=== PATIENT | male | born 1995 | race Caucasian/White ===

== ENCOUNTER → 2019-03-08 11:03 | Outpatient (CLI) | payer BC, MEDICAID, SELFPAY ==
[2019-03-08 11:05] LABS: Adenovirus F 40/41, stool Not Detected (NotDetected); Astrovirus Not Detected (NotDetected); Campylobacter Not Detected (NotDetected); Clostridium Difficile A/B, PCR Not Detected (NotDetected); Cryptosporidium Not Detected (NotDetected); Cyclospora Cayetanesis Not Detected (NotDetected); Entamoeba histolytica Not Detected (NotDetected); Enteroaggregative E coli Not Detected (NotDetected); Enteropathogenic E coli Not Detected (NotDetected); Enterotoxigenic E coli Not Detected (NotDetected); Giardia lamblia Not Detected (NotDetected); Norovirus Not Detected (NotDetected); Plesimonas Shigalloides, PCR Not Detected (NotDetected); Rotavirus A Not Detected (NotDetected); Salmonella, PCR Not Detected (NotDetected); Sapovirus Not Detected (NotDetected); Shiga-like toxin E coli Not Detected (NotDetected); Shigella Enterovasive E coli Not Detected (NotDetected); Vibrio Cholerae Not Detected (NotDetected); Vibrio, PCR Not Detected (NotDetected); Yersinia Entercolitica, PCR Not Detected (NotDetected)
== END ==
PROVIDERS: Visit Provider Internal Medicine
DX: K52.9 Noninfective gastroenteritis and colitis, unspecified (principal)
CPT/HCPCS: 87205; 87507

== ENCOUNTER → 2021-06-09 17:44 | Outpatient (CLI) | payer BC, OTHER, SELFPAY ==
[2021-06-09 19:04] LABS: Basophils % 0.5 % (0.1-2.0); Eosinophils # 0.1 K/mm3 (0.0-0.4); Hematocrit 44.7 % (42.0-52.0); Hemoglobin 15.5 g/dL (14.1-18.0); Lymphocytes # 2.1 K/mm3 (0.7-4.5); Lymphocytes % 37.2 % (10-50); Mean Corpuscular HGB Conc 34.7 g/dL (31.8-35.4); Mean Corpuscular Hemoglobin 31.2 pg (27.0-31.2); Mean Corpuscular Volume 89.8 fl (80-94); Mean Platelet Volume 9.5 fl (7.4-10.4); Monocytes # 0.4 K/mm3 (0.1-1.0); Monocytes % 6.2 % (1.7-9.3); Neutrophils # 3.1 K/mm3 (1.8-7.8); Neutrophils % 54.1 % (37.0-80.0); Platelet Count 215 K/mm3 (142-424); Red Blood Count 4.99 M/mm3 (4.60-6.20); Red Cell Distribution Width 12.4 % (11.5-17.5); White Blood Count 5.6 K/mm3 (4.8-10.8)
[2021-06-09 19:13] LABS: Alanine Aminotransferase 24 U/L (12-78); Albumin Level 4.5 g/dl (3.5-5.0); Albumin/Globulin Ratio 1.8 (1.1-1.8); Alkaline Phosphatase 39 U/L (38-126); Anion Gap 12.1 mEq/L (5-15); Aspartate Amino Transferase 26 U/L (17-59); Bilirubin,Total 0.4 mg/dl (0.2-1.3); Blood Urea Nitrogen 12 mg/dl (9-20); Calcium 9.4 mg/dl (8.4-10.2); Carbon Dioxide 30 mmol/L (22.0-30.0); Chloride 98 mmol/L (98-107); Chol/HDL Ratio 3.1 (1-3.5); Cholesterol 188 mg/dl (140-200); Estimated Glomerular Filt Rate 101 ml/min (>60); GFR (African American) 122 ML/MIN (>60); Globulin 2.5 g/dL (1.3-3.2); Glucose 95 mg/dl (74-100); HDL Cholesterol 60 mg/dl (40-60); Potassium 4.1 mmoL/L (3.5-5.1); Sodium 136 mmol/L (136-145); Triglycerides 227 mg/dl (30-150); VLDL Cholesterol 45 mg/dL (0-40)
[2021-06-09 19:24] LABS: Direct LDL Cholesterol 100.35 mg/dL (100-129)
[2021-06-09 20:25] LABS: Hemoglobin A1C 5.3 % (4.0-6.0)
== END ==
PROVIDERS: Visit Provider Internal Medicine
DX: I10 Essential (primary) hypertension (principal); E78.5 Hyperlipidemia, unspecified; M10.9 Gout, unspecified; R79.89 Other specified abnormal findings of blood chemistry; Z13.1 Encounter for screening for diabetes mellitus
CPT/HCPCS: 80053; 80061; 83036; 84443; 84550; 85025

== ENCOUNTER → 2021-09-21 13:22 | Outpatient (CLI) | payer BC, OTHER, SELFPAY ==
[2021-09-21 14:36] LABS: Chloride 105 mmol/L (98-107); Sodium 138 mmol/L (136-145)
[2021-09-21 14:37] LABS: Potassium 4.4 mmoL/L (3.5-5.1)
[2021-09-21 14:40] LABS: Anion Gap 13.4 mEq/L (5-15); Blood Urea Nitrogen 18 mg/dl (9-20); Calcium 8.5 mg/dl (8.4-10.2); Carbon Dioxide 24 mmol/L (22.0-30.0); Estimated Glomerular Filt Rate 100 ml/min (>60); GFR (African American) 122 ML/MIN (>60); Glucose 98 mg/dl (74-100)
== END ==
PROVIDERS: Visit Provider Internal Medicine
DX: M10.9 Gout, unspecified (principal); E03.9 Hypothyroidism, unspecified; I10 Essential (primary) hypertension; R94.6 Abnormal results of thyroid function studies
CPT/HCPCS: 80048; 84443

== ENCOUNTER 2022-02-08 09:29 | Emergency (ER) | payer OTHER, SELFPAY ==
[2022-02-08] VITALS (10 sets, daily range): BP systolic 134–162; BP diastolic 78–105; PULSE 66–99; RESP 16–18; TEMP 36.6–37.2; O2SAT 94–100; BMI 37.9
--- NOTE | 2022-02-08 10:32 | HMH.EDANX ---
ED Disposition Clinical Impression: Auditory hallucinations, Visual hallucination Psychosis Qualifiers: Psychosis type: unspecified psychosis type Qualified Code(s): F29 - Unspecified psychosis not due to a substance or known physiological condition Disposition: Xfer Psychiatric Hosp Condition on Discharge: Fair Referrals: Juan Torres MD [Primary Care Provider] - Forms: Work/School Release, Transfer Record - ED - Critical Care Critical Care Time: No Attestation: On 02/08/22, the high probability of a clinically significant, sudden or life threatening deterioration of the following system(s) required my full and direct attention, intervention and personal management. The time I documented below is in addition to time spent performing reported procedures but includes the following listed in this critical care notation. Medical Decision Making - Medical Records Medical records reviewed: Yes: I reviewed the patient's medical records. - Damon Inquiry Pt receiving controlled substance: No Vital Signs: 02/08/22 09:30 02/08/22 10:00 02/08/22 11:00 Temperature 99.0 F Temperature Source Oral Pulse Rate 87 85 Pulse Rate [Right Radial] 98 H Respiratory Rate 18 Blood Pressure 162/89 H Blood Pressure [Right Arm] 149/94 H Blood Pressure Mean 113 Blood Pressure Mean [Right Arm] 112 Blood Pressure Source Blood Pressure Source [Right Arm] Automatic Cuff Blood Pressure Position Blood Pressure Position [Right Arm] Sitting 02 Sat by Pulse Oximetry 98 100 98 Oxygen Delivery Method Room Air Room Air 02/08/22 12:02 02/08/22 12:44 02/08/22 13:01 Temperature Temperature Source Pulse Rate 73 83 73 Pulse Rate [Right Radial] Respiratory Rate 16 Blood Pressure 162/105 H 146/92 H 134/84 Blood Pressure [Right Arm] Blood Pressure Mean 124 110 100 Blood Pressure Mean [Right Arm] Blood Pressure Source Blood Pressure Source [Right Arm] Blood Pressure Position Blood Pressure Position [Right Arm] 02 Sat by Pulse Oximetry 100 100 100 Oxygen Delivery Method Room Air 02/08/22 15:42 02/08/22 16:01 02/08/22 19:00 Temperature Temperature Source Pulse Rate 66 93 H 99 H Pulse Rate [Right Radial] Respiratory Rate 16 18 18 Blood Pressure 162/78 H 144/86 H 151/85 H Blood Pressure [Right Arm] Blood Pressure Mean 93 102 107 Blood Pressure Mean [Right Arm] Blood Pressure Source Blood Pressure Source [Right Arm] Blood Pressure Position Blood Pressure Position [Right Arm] 02 Sat by Pulse Oximetry 94 L 98 98 Oxygen Delivery Method Room Air Room Air Room Air 02/08/22 20:06 Temperature 98 F Temperature Source Oral Pulse Rate 90 Pulse Rate [Right Radial] Respiratory Rate 18 Blood Pressure 151/85 H Blood Pressure [Right Arm] Blood Pressure Mean Blood Pressure Mean [Right Arm] Blood Pressure Source Automatic Cuff Blood Pressure Source [Right Arm] Blood Pressure Position Sitting Blood Pressure Position [Right Arm] 02 Sat by Pulse Oximetry Oxygen Delivery Method Room Air - Lab Data Lab Results 02/08/22 11:00: Urine Color Yellow, Urine Appearance Clear, Urine pH 6.5, Ur Specific Ada <= 1.005, Urine Protein Negative, Urine Glucose (UA) Negative, Urine Ketones Negative, Urine Blood Negative, Urine Nitrate Negative, Urine Bilirubin Negative, Urine Urobilinogen 0.2, Ur Leukocyte Esterase Negative, Urine RBC None, Urine WBC None, Ur Squamous Epith Cells None, Urine Bacteria Trace 02/08/22 11:00: WBC 7.3, RBC 4.71, Hgb 14.5, Hct 44.5, MCV 94.3 H, MCH 30.8, MCHC 32.7, RDW 12.8, Plt Count 236, MPV 9.0, Neut % (Auto) 67.7, Lymph % (Auto) 25.8, [place] % (Auto) 5.9, Eos % (Auto) 0.0 L, Baso % (Auto) 0.6, Neut # (Auto) 5.0, Lymph # (Auto) 1.9, [place] # (Auto) 0.4, Eos # (Auto) 0.0, Baso # (Auto) 0.0 02/08/22 11:00: Sodium 139, Potassium 3.8, Chloride 104, Carbon Dioxide 25, Anion Gap 13.8, BUN 7 L, Creatinine 0.80, Estimated Creat Clear 282, Estimat
--- NOTE | 2022-02-08 10:36 | PC.NURSE ---
ER MD at for patient eval; Mother at BS
--- NOTE | 2022-02-08 11:14 | PC.NURSE ---
notified ER MD pt is having more hallucinations, thinking the bed is spinning and he feels like he is going to fall off. pt is oriented to person/place but is seeing people who are not present. Pt mother at , juan daniel bed rails up on bed.
[2022-02-08 11:18] LABS: Microscopic, Urine URINE MICROSCOPIC (MICROSCOPIC)
[2022-02-08 11:22] LABS: Basophils % 0.6 % (0.1-2.0); Hematocrit 44.5 % (42.0-52.0); Hemoglobin 14.5 g/dL (14.1-18.0); Lymphocytes # 1.9 K/mm3 (0.7-4.5); Lymphocytes % 25.8 % (10-50); Mean Corpuscular HGB Conc 32.7 g/dL (31.8-35.4); Mean Corpuscular Hemoglobin 30.8 pg (27.0-31.2); Mean Corpuscular Volume 94.3 fl (80-94); Monocytes # 0.4 K/mm3 (0.1-1.0); Monocytes % 5.9 % (1.7-9.3); Neutrophils % 67.7 % (37.0-80.0); Platelet Count 236 K/mm3 (142-424); Red Blood Count 4.71 M/mm3 (4.60-6.20); Red Cell Distribution Width 12.8 % (11.5-17.5); White Blood Count 7.3 K/mm3 (4.8-10.8)
[2022-02-08 11:26] LABS: Appearance,Urine CLEAR (Clear); Bilirubin,Urine Negative (Negative); Blood, Urine Negative (Negative); Color,Urine YELLOW (Yellow); Glucose,Urine (UA) Negative (Negative); Ketones,Urine Negative (Negative); Leukocyte Esterase,Urine Negative (Negative); Nitrate,Urine Negative (Negative); PH,Urine 6.5 (5.0-8.5); Protein,Urine Negative (Negative); Specific Gravity, Urine <= 1.005 (1.005-1.030); Urobilinogen,Urine 0.2 EU/dl (0.2)
[2022-02-08 11:27] LABS: Alanine Aminotransferase 36 U/L (12-78); Albumin Level 4.7 g/dl (3.5-5.0); Albumin/Globulin Ratio 1.6 (1.1-1.8); Alkaline Phosphatase 49 U/L (38-126); Anion Gap 13.8 mEq/L (5-15); Aspartate Amino Transferase 33 U/L (17-59); Bilirubin,Total 0.6 mg/dl (0.2-1.3); Blood Urea Nitrogen 7 mg/dl (9-20); Calcium 9.2 mg/dl (8.4-10.2); Carbon Dioxide 25 mmol/L (22.0-30.0); Chloride 104 mmol/L (98-107); Creatinine Clearance Estimated 282 mL/min (50-200); Estimated Glomerular Filt Rate 115 ml/min (>60); GFR (African American) 139 ML/MIN (>60); Globulin 2.9 g/dL (1.3-3.2); Glucose 101 mg/dl (74-100); Potassium 3.8 mmoL/L (3.5-5.1); Sodium 139 mmol/L (136-145); Total Protein,Serum 7.6 g/dl (6.3-8.2)
[2022-02-08 11:29] LABS: Ethyl Alcohol < 10 mg/dl (0-10)
[2022-02-08 11:38] LABS: Bacteria,Urine Trace /lpf
[2022-02-08 11:43] LABS: Barbiturates Screen,Urine Negative ng/ml (<200); Cannabinoid Screen,Urine Negative ng/ml (<50); Cocaine Screen,Urine Negative ng/ml (<300); Methadone Screen,Urine Negative ng/ml (<300); Opiate Screen,Urine Negative ng/ml (<300); Phencyclidine Screen,Urine Negative ng/ml (<25)
[2022-02-08 11:47] LABS: Amphetamine/Metha Screen,Urine Negative ng/ml (<1000)
[2022-02-08 11:49] LABS: Benzodiazepines Screen,Urine Negative ng/ml (<200)
--- NOTE | 2022-02-08 12:20 | PC.NURSE ---
pt ambulated to restroom independently at this time.
--- NOTE | 2022-02-08 13:12 | PC.NURSE ---
contacted care management to assist with possible psych consult or transfer
--- NOTE | 2022-02-08 13:27 | PC.NURSE ---
spoke with alli at this time, states she is going to contact [facility] for placement. Pt is agreeable to go to [facility] at this time.
--- NOTE | 2022-02-08 13:28 | SW/DCPLANNER ---
Addendum entered by Trini Metzger 02/08/22 16:01: Patient is currently on the phone with Intake at [facility]. Addendum entered by Trini Metzger 02/08/22 14:05: Cruz Sheffield is currently reviewing patient information. Original Note: Patient information has been faxed to Intake (Isaura) at [facility] at this time. I will follow up with patient once Isaura reviews patient information.
--- NOTE | 2022-02-08 14:00 | PC.NURSE ---
pt given lunch tray
--- NOTE | 2022-02-08 14:40 | PC.NURSE ---
per alli in care management pt information has been sent to [facility] they are still reviewing it, waiting to hear back from them
--- NOTE | 2022-02-08 15:31 | PC.NURSE ---
per alli in care management states she just got off the phone with [facility], states they are currently reviewing pt chart and are supposed to call her back soon.
--- NOTE | 2022-02-08 15:40 | PC.NURSE ---
updated pt on POC, pt resting in bed on his phone, parents at BS will continue to monitor
--- NOTE | 2022-02-08 15:48 | PC.NURSE ---
Rounded on pt. B/P cuff reapplied and warm blankets provided
--- NOTE | 2022-02-08 15:55 | PC.NURSE ---
pt speaking with magalie at [facility] doing an assessment screening on pt. alli ron from care management at
--- NOTE | 2022-02-08 16:20 | PC.NURSE ---
pt hung up on magalie at [facility] during assessment, pt mother reports pt began hallucinating while on the phone at hung up. Called back to [facility] magalie states she giving pt information to their doctor and will contact us back
--- NOTE | 2022-02-08 17:17 | PC.NURSE ---
171- spoke with magalie at [facility] at this times states pt accepted per dr. murrieta 1715-report given to rachele alcala at [facility] at this time, requesting an ekg and covid swab and requests we fax results prior to sending there for transfer fax number [phone]
--- NOTE | 2022-02-08 17:27 | ECG_ITS ---
APPROVED REPORT Exam: Resting ECG HR:90 bpm ECG Measurements Heart Rate 90 AXES HI 144 P 46 QRSd 88 QRS 62 QT 337 T -7 QTc 384 Conclusion SINUS RHYTHM NONSPECIFIC T-WAVE ABNORMALITY ABNORMAL ECG UNCONFIRMED REPORT Electronically signed by : Juan Torres MD 02/09/2022 21:24:52
--- NOTE | 2022-02-08 17:51 | PC.NURSE ---
Dietary brought patient a regular diet tray to BS.
--- NOTE | 2022-02-08 18:00 | PC.NURSE ---
lab states placing pt covid swab on next
[2022-02-08 18:01] LABS: Coronavirus 19, PCR Not Detected (NotDetected); Influenza A, PCR Not Detected (NotDetected); Influenza B, PCR Not Detected (NotDetected)
--- NOTE | 2022-02-08 18:26 | PC.NURSE ---
pt given another blanket and pillow. lights are out, and patient is resting with father at BS.
--- NOTE | 2022-02-08 18:37 | PC.NURSE ---
faxed paperwork, ekg and covid results to [facility]
--- NOTE | 2022-02-08 18:52 | PC.NURSE ---
spoke with intake center at [facility], states they have received ekg and covid swab on pt. States okay to send pt on over. contacted dispatch to speak with [facility], waiting solution coordinator back
--- NOTE | 2022-02-08 19:22 | PC.NURSE ---
per [facility] officer states they are unable to transport pt at this time r/t unavailable amount of staff states she is going to contact [facility] office at 8pm, have update pt mother at this time
--- NOTE | 2022-02-08 19:40 | PC.NURSE ---
report given to rachele pleitez
--- NOTE | 2022-02-08 20:24 | PC.NURSE ---
dispatch notified that we have the need for transport to [facility]
== END 2022-02-08 20:57 ==
PROVIDERS: Emergency Provider Emergency Medicine; PCP Internal Medicine Adolescent Medicine
DX: F29 Unspecified psychosis not due to a substance or known physiological condition (principal); Z20.822 Contact with and (suspected) exposure to COVID-19
CPT/HCPCS: 80053; 80305; 81001; 85025; 93005; 96372; 99283; C9803; U0003; U0005

== ENCOUNTER → 2022-03-05 11:12 | Outpatient (CLI) | payer OTHER, SELFPAY ==
[2022-03-05 11:39] LABS: Barbiturates Screen,Urine Negative ng/ml (<200)
[2022-03-05 11:40] LABS: Amphetamine/Metha Screen,Urine Negative ng/ml (<1000); Benzodiazepines Screen,Urine Negative ng/ml (<200)
[2022-03-05 11:41] LABS: Methadone Screen,Urine Negative ng/ml (<300)
[2022-03-05 11:42] LABS: Cannabinoid Screen,Urine Negative ng/ml (<50); Cocaine Screen,Urine Negative ng/ml (<300)
[2022-03-05 11:44] LABS: Opiate Screen,Urine Negative ng/ml (<300); Phencyclidine Screen,Urine Negative ng/ml (<25)
== END ==
PROVIDERS: PCP Internal Medicine Adolescent Medicine; Visit Provider Internal Medicine Adolescent Medicine
DX: Z00.00 Encounter for general adult medical examination without abnormal findings (principal)
CPT/HCPCS: 80305

== ENCOUNTER 2022-06-23 16:52 | Emergency (ER) | payer OTHER, SELFPAY ==
[2022-06-23 17:35] VITALS: BP 149/81; PULSE 89; RESP 19; TEMP 37.2; O2SAT 99; BMI 37.9
--- NOTE | 2022-06-23 17:44 | EXP.UTC ---
Discharge Plan Disposition Patient Disposition: Home, Self-Care Condition: Good Prescriptions Prescriptions: New benzonatate [benzonatate] 100 mg capsule 100 mg PO TIDP PRN (Reason: Cough) Qty: 30 0RF amoxicillin-pot clavulanate 875-125 mg Tablet 1 tab PO Q12H Qty: 20 0RF prednisone [prednisone] 20 mg tablet 20 mg PO BID 3 Days Qty: 6 0RF No Action Vivitrol 380 mg suspension,extended rel recon 380 mg IM MONTHLY Qty: 1 0RF amitriptyline 50 MG tablet 50 mg PO HS propranolol 40 MG tablet 20 mg PO BID levothyroxine 150 MCG tablet 150 mcg PO DAILY quetiapine 50 MG tablet extended release 24 hr 50 mg PO BID Referrals Follow up/Referrals: Juan Torres MD [Primary Care Provider] - See instructions Activity Restrictions/Add. Instructions Additional Instructions/Restrictions: Drink plenty of fluids. Take tylenol or ibuprofen for pain or fever. Take the medications as directed. Follow up with your regular doctor. GO TO THE ER FOR ANY WORSENING SYMPTOMS Throw your tooth brush away and get a new one. Clinical Impressions Clinical Impression: Strep throat Instructions Patient Instructions: Strep Throat, DI for Strep Throat Discharge ED Provider: Christopher Meraz [facility] HPI General Stated complaint: sore throat Time Seen by Provider: 06/23/22 17:44 History of Present Illness Provider Complaint: He states that for the past 2 days he has had a very sore throat and sinus drainage. He has been exposed to strep throat at his work. Related Data Home Medications Medication Instructions Recorded Confirmed amitriptyline 50 mg tablet 50 mg PO HS sleep 02/08/22 04/29/22 levothyroxine 150 mcg tablet 150 mcg PO DAILY thyroid 02/08/22 04/29/22 propranolol 40 mg tablet 20 mg PO BID mood 02/08/22 04/29/22 quetiapine 50 mg tablet,extended 50 mg PO BID Anxiety 02/08/22 04/29/22 release 24 hr Previous Rx's Medication Instructions Recorded amoxicillin 875 mg-potassium 1 tab PO Q12H #20 tabs 06/23/22 clavulanate 125 mg tablet benzonatate 100 mg capsule 100 mg PO TIDP PRN Cough #30 caps 06/23/22 prednisone 20 mg tablet 20 mg PO BID 3 days #6 tabs 06/23/22 Allergies Allergy/AdvReac Type Severity Reaction Status Date / Time methocarbamol AdvReac Mild ANXIETY/WAN Verified 06/23/22 17:58 [facility] Disclaimer: The information contained in this section may have been updated after the patient was seen, as this information can be updated by other users. Medical History Opiate misuse Social History Smoking Status: Never smoker alcohol intake: former counseling given: No substance use type: former substance user, heroin and painkillers counseling given: No current occupational status: employed Travel in the last 8 weeks: None adopted: No caregiver/support person: No foster care: No household members: family housing: house marital status: single number of children: 0 education level: high school service: No ROS Obtained: Yes All systems reviewed & no additional complaints except as documented Constitutional Constitutional: Reports chills and Reports fever(s) Eyes Eyes: Denies eye discharge ENT Ears, Nose, Mouth, and Throat: Reports as per HPI Cardiovascular Cardiovascular: Denies chest pain Respiratory Respiratory: Denies chest congestion and Reports cough Gastrointestinal Gastrointestingal: Reports nausea; Denies abdominal pain, constipation, cramping, diarrhea or vomiting Musculoskeletal Musculoskeletal: Denies arthralgias Integumentary/Breasts Skin/Breast: Denies rash Neurologic Neurologic: Denies paresthesias Physical Exam General General appearance: alert and in no apparent distress Head Head exam: atraumatic, normocephalic and normal inspection Eye Eye exam: Present normal a
[2022-06-23 17:54] LABS: UTC Strep Screen (Rapid) Positive (Negative)
[2022-06-23 18:00] VITALS: BP 149/81; PULSE 89; RESP 19; TEMP 36.8; O2SAT 99
== END 2022-06-23 18:00 | disposition home or self-care (01) ==
PROVIDERS: Emergency Provider Nurse Practitioner Family; PCP Internal Medicine Adolescent Medicine
DX: J02.0 Streptococcal pharyngitis (principal)
CPT/HCPCS: 87880; 99212; 99213; G0463

== ENCOUNTER 2022-09-22 15:08 | Emergency (ER) | payer OTHER, SELFPAY ==
--- NOTE | 2022-09-22 15:20 | XR_ITS ---
FINAL REPORT CLINICAL HISTORY: fell FINDINGS: RIGHT SHOULDER Two views of the right shoulder were obtained. There is no acute fracture or dislocation. The joint spaces are intact. There is no soft tissue abnormality. IMPRESSION: No acute bony abnormality. Reviewed, Interpreted and Dictated by Manjeet Mota MD Transcribed by Nora Calderon Authenticated and [facility]
--- NOTE | 2022-09-22 15:20 | XR_ITS ---
FINAL REPORT CLINICAL HISTORY: fell FINDINGS: RIGHT HUMERUS Two views of the right humerus were obtained. There is no acute fracture or dislocation. The visualized joint spaces are intact. There is no soft tissue abnormality. IMPRESSION: No acute bony abnormality. Reviewed, Interpreted and Dictated by Manjeet Mota MD Transcribed by Nora Calderon Authenticated and [facility]
--- NOTE | 2022-09-22 15:20 | XR_ITS ---
FINAL REPORT CLINICAL HISTORY: fell FINDINGS: RIGHT CLAVICLE Two views of the right clavicle were obtained. There is no acute fracture or dislocation. The joint spaces are intact. There is no soft tissue abnormality. IMPRESSION: No acute bony abnormality. Reviewed, Interpreted and Dictated by Manjeet Mota MD Transcribed by Nora Calderon Authenticated and [facility]
--- NOTE | 2022-09-22 15:21 | XR_ITS ---
FINAL REPORT CLINICAL HISTORY: fell FINDINGS: RIGHT ELBOW Three views of the right elbow were obtained. There is no acute fracture or dislocation. The joint spaces are intact. There is no soft tissue abnormality. IMPRESSION: No acute bony abnormality. Reviewed, Interpreted and Dictated by Manjeet Mota MD Transcribed by Nora Calderon Authenticated and [facility]
[2022-09-22 15:45] VITALS: BP 164/95; PULSE 118; RESP 20; TEMP 36.9; O2SAT 99; BMI 35.5
--- NOTE | 2022-09-22 16:02 | EXP.UTC ---
Discharge Plan Disposition Patient Disposition: Home, Self-Care Condition: Good Prescriptions Prescriptions: No Action Vivitrol 380 mg suspension,extended rel recon 380 mg IM MONTHLY Qty: 1 0RF propranolol 40 MG tablet 20 mg PO BID levothyroxine 150 MCG tablet 150 mcg PO DAILY quetiapine 50 MG tablet extended release 24 hr 50 mg PO BID Referrals Follow up/Referrals: Gold King JR, MD [Physician] - See instructions (Call office for appointment ) Juan Torres MD [Primary Care Provider] - See instructions Activity Restrictions/Add. Instructions Additional Instructions/Restrictions: *RICE, Rest the extremity, Ice 15-20 minutes 3-4 times daily, Compress- wear the adriane wrap as discussed as much as possible to help reduce swelling and pain, Elevate the extremity when at rest *Sling is for support and help control swelling, use it except in the shower. Be sure that is not to tight but not to loose either *Elevate when resting? *Ibuprofen 600-800mg every 6-8 hours as needed for pain an inflammation if you can take it. If not or your need something more can take Tylenol in between doses of Ibuprofen to help Immediately follow up with your family doctor for new or worsening of symptoms, or no noticeable improvement over the next 3-5 days Follow up with Orthopedics or you Family Doctor for further evaluation and testing Clinical Impressions Clinical Impression: Arm pain, right Stand Alone Forms Stand Alone Forms: Work/School Release Instructions Patient Instructions: How to Use a Sling, How To Perform RICE (Rest, Ice, Compress, Elevate) Discharge ED Provider: Taina Garcia [facility] General Stated complaint: AO 09/18@home injured R shoulder Mode of Arrival: Ambulatory Source of Information: Patient Limitations: No Limitations Time Seen by Provider: 09/22/22 16:03 Description of Symptoms (Recalled from Triage Doc. by RN): sat fell in shower hit elbow. Pain in elbow, bicep, and shoulder HEENT Symptoms (Recalled from RN notes): No Resp Symptoms (Recalled from RN notes): No Skin Symptoms (Recalled from RN notes): No MS Symptoms (Recalled from RN notes): Yes Functional Status (Recalled from RN notes): n/a History of Present Illness Provider Complaint: Patient states that on September 18 he was in the shower and lost his balance and fell States that he landed caught himself with his elbow on the floor States that since then he has been having pain in his right elbow, upper arm, shoulder and clavicle area States that today he was having pain when he would try to raise up his arm States that when he tries to raise up his arm it shoots pain through his shoulder and down his arm so he came in to get it checked worried his shoulder may be dislocated Related Data Home Medications Medication Instructions Recorded Confirmed levothyroxine 150 mcg tablet 150 mcg PO DAILY thyroid 02/08/22 09/22/22 propranolol 40 mg tablet 20 mg PO BID mood 02/08/22 09/22/22 quetiapine 50 mg tablet,extended 50 mg PO BID Anxiety 02/08/22 09/22/22 release 24 hr Allergies Allergy/AdvReac Type Severity Reaction Status Date / Time methocarbamol AdvReac Mild ANXIETY/WAN Verified 09/22/22 16:03 SE[facility] Worker's Comp Is this a Worker's Comp case?: No [facility] Disclaimer: The information contained in this section may have been updated after the patient was seen, as this information can be updated by other users. Medical History Opiate misuse Social History Smoking Status: Never smoker alcohol intake: former counseling given: No substance use type: former substance user, heroin and painkillers counseling given: No current occupational status: employed Travel in the last 8 weeks: None adopted: No caregiver/support person: No foster care: No household members: family housing: house mar
[2022-09-22 16:46] VITALS: BP 164/95; PULSE 118; RESP 20; TEMP 36.9; O2SAT 99
== END 2022-09-22 16:44 | disposition home or self-care (01) ==
PROVIDERS: Emergency Provider Nurse Practitioner; PCP Internal Medicine Adolescent Medicine
DX: M79.601 Pain in right arm (principal); W18.2XXA Fall in (into) shower or empty bathtub, initial encounter
CPT/HCPCS: 73000; 73030; 73060; 73080; 99212; 99213; 99214; G0463

== ENCOUNTER → 2022-10-01 10:03 | Outpatient (CLI) | payer OTHER, SELFPAY ==
--- NOTE | 2022-10-01 10:05 | MR_ITS ---
FINAL REPORT CLINICAL HISTORY: ROTATOR CUFF SYNDROME OF RIGHT SHOULDER fall on right shoulder limited rom FINDINGS: Multiplanar MR imaging of the right shoulder was performed without contrast. Motion artifact is identified on all of the images. The tendons of the rotator cuff are intact without evidence of rotator cuff tear. There is mild AC joint arthrosis. No abnormal fluid is seen in the subacromial/subdeltoid bursa. There is mild irregularity of the posterior labrum, tear in this region is not excluded. The long head of the biceps tendon is intact. Small glenohumeral joint effusion is seen. There is no evidence of fracture or dislocation. The musculature is intact. There is no evidence of soft tissue mass. IMPRESSION: Mild irregularity of the posterior labrum, tear in this region is not excluded. Reviewed, Interpreted and Dictated by Oli Ramires III, MD Transcribed by Catalina Lindsay Authenticated and . [facility]
== END ==
PROVIDERS: PCP Internal Medicine Adolescent Medicine; Visit Provider Internal Medicine Adolescent Medicine
DX: M75.101 Unspecified rotator cuff tear or rupture of right shoulder, not specified as traumatic (principal)
CPT/HCPCS: 73221

== ENCOUNTER 2022-12-01 19:33 | Emergency (ER) | payer OTHER, SELFPAY ==
[2022-12-01 19:40] VITALS: BP 144/90; PULSE 103; RESP 18; TEMP 36.7; O2SAT 100; BMI 34.7
--- NOTE | 2022-12-01 20:20 | EXP.UTC ---
Discharge Plan Disposition Patient Disposition: Home, Self-Care Condition: Good Prescriptions Prescriptions: New colchicine 0.6 mg capsule 0.6 mg PO DIRECTED Qty: 6 0RF Rx Instructions: Take 2 0.6mg capsules (1.2mg) now then wait one hour and take one 0.6mg capsule wait 3 days then May repeat directions in 72 hrs (3 Days) if still having symptoms No Action Vivitrol 380 mg suspension,extended rel recon 380 mg IM MONTHLY Qty: 1 0RF propranolol 40 MG tablet 20 mg PO BID levothyroxine 150 MCG tablet 150 mcg PO DAILY quetiapine 50 MG tablet extended release 24 hr 50 mg PO BID diclofenac sodium 75 mg tablet,delayed release (DR/EC) 75 mg PO DAILY propranolol 20 mg tablet 20 mg PO DAILY Referrals Follow up/Referrals: Juan Torres MD [Primary Care Provider] - See instructions Activity Restrictions/Add. Instructions Additional Instructions/Restrictions: Follow up with your Family Doctor if no improvement or any worsening of symptoms Reutrn if needed Straight to ER if any life threatening symptoms Clinical Impressions Clinical Impression: Gout attack Qualifiers: Gout site: toe Gout etiology: unspecified cause Laterality: left Qualified Code(s): M10.9 - Gout, unspecified Instructions Patient Instructions: Gout, DI for Gout Discharge ED Provider: Taina Garcia [facility] General Stated complaint: left foot pain Mode of Arrival: Ambulatory Source of Information: Patient Limitations: No Limitations Time Seen by Provider: 12/01/22 20:20 Description of Symptoms (Recalled from Triage Doc. by RN): PATIENT C/O SWELLING, REDNESS, AND WARMTH TO LEFT GREAT TOE X 2 DAYS HEENT Symptoms (Recalled from RN notes): No Resp Symptoms (Recalled from RN notes): No Skin Symptoms (Recalled from RN notes): No MS Symptoms (Recalled from RN notes): Yes Functional Status (Recalled from RN notes): WNL History of Present Illness Provider Complaint: Patient states a history of gout States that for the last couple of days he has been having redness and swelling in his left great toe and thinks he may be having a flare and came in to see if he could get something to help Related Data Home Medications Medication Instructions Recorded Confirmed levothyroxine 150 mcg tablet 150 mcg PO DAILY thyroid 02/08/22 12/01/22 propranolol 40 mg tablet 20 mg PO BID mood 02/08/22 10/28/22 quetiapine 50 mg tablet,extended 50 mg PO BID Anxiety 02/08/22 10/28/22 release 24 hr diclofenac sodium 75 mg 75 mg PO DAILY Pain 12/01/22 12/01/22 tablet,delayed release propranolol 20 mg tablet 20 mg PO DAILY . 12/01/22 12/01/22 Previous Rx's Medication Instructions Recorded colchicine 0.6 mg capsule 0.6 mg PO DIRECTED #6 caps 12/01/22 Allergies Allergy/AdvReac Type Severity Reaction Status Date / Time methocarbamol AdvReac Mild ANXIETY/WAN Verified 09/22/22 16:03 [facility] Worker's Comp Is this a Worker's Comp case?: No [facility] Disclaimer: The information contained in this section may have been updated after the patient was seen, as this information can be updated by other users. Medical History Opiate misuse Social History Smoking Status: Never smoker alcohol intake: former counseling given: No substance use type: former substance user, heroin and painkillers counseling given: No current occupational status: employed Travel in the last 8 weeks: None adopted: No caregiver/support person: No foster care: No household members: family housing: house marital status: single number of children: 0 education level: high school service: No ROS Obtained: Yes All systems reviewed & no additional complaints except as documented and Yes Systems reviewed as appropriate & no additional complaints except as documented Constitutional Constitutional:
[2022-12-01 20:29] VITALS: BP 144/90; PULSE 103; RESP 18; TEMP 36.7; O2SAT 100
== END 2022-12-01 20:57 | disposition home or self-care (01) ==
PROVIDERS: Emergency Provider Nurse Practitioner; PCP Internal Medicine Adolescent Medicine
DX: M10.072 Idiopathic gout, left ankle and foot (principal)
CPT/HCPCS: 96372; 99212; 99214; G0463

== ENCOUNTER 2022-12-06 09:21 | Emergency (ER) | payer OTHER, SELFPAY ==
[2022-12-06 09:25] VITALS: BP 151/88; PULSE 78; RESP 18; TEMP 37.2; O2SAT 99; BMI 38.6
--- NOTE | 2022-12-06 09:47 | EXP.UTC ---
Discharge Plan Disposition Patient Disposition: Home, Self-Care Condition: Good Prescriptions Prescriptions: New ofloxacin [Ocuflox] 0.3 % drops 2 drp ophthalmic (eye) QID 5 Days Qty: 10 0RF Rx Instructions: Use drops as directed in left eye No Action Vivitrol 380 mg suspension,extended rel recon 380 mg IM MONTHLY Qty: 1 0RF propranolol 40 MG tablet 20 mg PO BID levothyroxine 150 MCG tablet 150 mcg PO DAILY quetiapine 50 MG tablet extended release 24 hr 50 mg PO BID diclofenac sodium 75 mg tablet,delayed release (DR/EC) 75 mg PO DAILY propranolol 20 mg tablet 20 mg PO DAILY colchicine 0.6 mg capsule 0.6 mg PO DIRECTED Qty: 6 0RF Rx Instructions: Take 2 0.6mg capsules (1.2mg) now then wait one hour and take one 0.6mg capsule wait 3 days then May repeat directions in 72 hrs (3 Days) if still having symptoms Referrals Follow up/Referrals: Juan Torres MD [Primary Care Provider] - See instructions Activity Restrictions/Add. Instructions Additional Instructions/Restrictions: Clean matting from eyes with warm water and baby shampoo Use drops as directed Do not wear contacts until completion of treatment and not having any symptoms Throw away the contacts you have been wearing Follow up with Eye Doctor if no improvement or any worsening of symptoms Clinical Impressions Clinical Impression: Conjunctivitis Stand Alone Forms Stand Alone Forms: Work/School Release Instructions Patient Instructions: Conjunctivitis, DI for Conjunctivitis Discharge ED Provider: Taina Garcia [facility] General Stated complaint: possible pink eye Mode of Arrival: Ambulatory Source of Information: Patient Limitations: No Limitations Time Seen by Provider: 12/06/22 09:47 Description of Symptoms (Recalled from Triage Doc. by RN): PATIENT C/O REDNESS AND SWELLING TO LEFT EYE SINCE LAST NIGHT HEENT Symptoms (Recalled from RN notes): Yes Resp Symptoms (Recalled from RN notes): No Skin Symptoms (Recalled from RN notes): No MS Symptoms (Recalled from RN notes): No Functional Status (Recalled from RN notes): WNL History of Present Illness Provider Complaint: Patient states that for the last couple of days he has been having drainage and matting in his left eye and he noticed yesterday that it was starting to look red States that he wears contacts so he put some drops in his eyes and this morning it was more red and matted so he came in Related Data Home Medications Medication Instructions Recorded Confirmed levothyroxine 150 mcg tablet 150 mcg PO DAILY thyroid 02/08/22 12/01/22 propranolol 40 mg tablet 20 mg PO BID mood 02/08/22 10/28/22 quetiapine 50 mg tablet,extended 50 mg PO BID Anxiety 02/08/22 10/28/22 release 24 hr diclofenac sodium 75 mg 75 mg PO DAILY Pain 12/01/22 12/01/22 tablet,delayed release propranolol 20 mg tablet 20 mg PO DAILY . 12/01/22 12/01/22 Previous Rx's Medication Instructions Recorded colchicine 0.6 mg capsule 0.6 mg PO DIRECTED #6 caps 12/01/22 ofloxacin 0.3 % eye drops (Ocuflox) 2 drp ophthalmic (eye) QID 5 days 12/06/22 #10 mL Allergies Allergy/AdvReac Type Severity Reaction Status Date / Time methocarbamol AdvReac Mild ANXIETY/WAN Verified 09/22/22 16:03 SEA Worker's Comp Is this a Worker's Comp case?: No [facility] Disclaimer: The information contained in this section may have been updated after the patient was seen, as this information can be updated by other users. Medical History Opiate misuse Social History Smoking Status: Never smoker alcohol intake: former counseling given: No substance use type: former substance user, heroin and painkillers counseling given: No current occupational status: employed Travel in the last 8 weeks: None adopted: No caregiver/support person: No
[2022-12-06 09:52] VITALS: BP 151/88; PULSE 78; RESP 18; TEMP 37.2; O2SAT 99
== END 2022-12-06 09:55 | disposition home or self-care (01) ==
PROVIDERS: Emergency Provider Nurse Practitioner; PCP Internal Medicine Adolescent Medicine
DX: H10.33 Unspecified acute conjunctivitis, bilateral (principal)
CPT/HCPCS: 99212; 99214; G0463